=== PATIENT | male | born 1950 | race Caucasian/White ===

== ENCOUNTER 2017-08-17 09:37 | Day surgery (SDC) | payer OTHER ==
[~2017-08-17 09:37] MED LIST: Lactated Ringers 1,000 ML IV SCH; Sodium Chloride 0.9% 10 ML Syringe FLUSH PRN
[2017-08-17] MEDS ORDERED: Midazolam 1 MG/ML 2 ML SDV ONE ×2 (10:37→10:46)
[2017-08-17] MEDS ORDERED: Propofol 200 MG/20 ML SDV ONE ×2 (10:37→10:46)
--- NOTE | 2017-08-17 10:38 | PCM.PN ---
- General Info Date of Service: 08/17/17 - Review of Systems Systems Review Comment:: 66-year-old male with history of colon polyps and diverticulosis here for colonoscopy. He is medically stable to proceed today. His recent history and physical is reviewed and there is no significant changes since then. I have discussed the proposed colonoscopy with the patient. He understands indications options and risks and agrees to proceed. - Patient Data Vitals - Most Recent: Last Vital Signs Temp 98.7 F 08/17/17 10:11 Pulse 68 08/17/17 10:11 Resp 20 08/17/17 10:11 BP 166/100 H 08/17/17 10:11 Pulse Ox 94 L 08/17/17 10:11 Weight - Most Recent: 113.398 kg Med Orders - Current: Current Medications Lactated Ringer's (Ringers, Lactated) 1,000 mls @ 125 mls/hr IV ASDIRECTED RON Last Admin: 08/17/17 10:33 Dose: 125 mls/hr Sodium Chloride (Saline Flush) 10 ml FLUSH ASDIRECTED PRN PRN Reason: Keep Vein Open - Problem List Review Problem List Initiated/Reviewed/Updated: Yes - Assessment Assessment:: History of colon polyps - Plan Plan:: Colonoscopy
--- NOTE | 2017-08-17 11:31 | PCM.OPNOTE ---
- General Post-Op/Procedure Note Date of Surgery/Procedure: 08/17/17 Operative Procedure(s): Colonoscopy with polypectomy Findings: Extensive sigmoid and descending colon diverticulosis Multiple small colon polyps Pre Op Diagnosis: History of colon polyps Post-Op Diagnosis: Colon polyps. Diverticulosis Primary Surgeon: Silvano Corey Pathology: Colon polyps Output, Urine Amount: 0 EBL in mLs: 0 Complications: None Condition: Good Free Text/Narrative:: Intake & Output 08/16/17 08/17/17 08/17/17 22:59 06:59 14:59 Intake Total 900 Balance 900
[2017-08-17] MEDS ORDERED: Ondansetron 4 MG/2 ML SDV IVPUSH ONE (12:27)
--- NOTE | 2017-08-17 12:51 | OR ---
Date of Procedure: 08/17/2017 PREOPERATIVE DIAGNOSIS: History of colon polyps. POSTOPERATIVE DIAGNOSES: Colon polyps, diverticulosis. OPERATION PERFORMED: Colonoscopy with polypectomy. INDICATIONS FOR SURGERY: This 66-year-old male is here for surveillance colonoscopy. He has a history of colon polyps. FINDINGS: Multiple colon polyps were noted on today's exam. There was a 5 mm polyp in the distal transverse colon; a 6 mm polyp in the sigmoid colon, 20 cm from the anal verge; a 5 mm polyp in the sigmoid colon, 15 cm from the anal verge; a 5 mm polyp in the rectum, 10 cm from the anal verge; all of these polyps were sessile in configuration. The patient also has extensive diverticulosis involving the sigmoid and descending colon, although there was no acute inflammation noted. DESCRIPTION OF PROCEDURE: The patient was taken to the operating room. He was given intravenous sedation and with him in the left lateral decubitus position, digital rectal exam was performed showing no rectal masses. The Olympus colonoscope was inserted into the rectum. Retroflexed examination of the rectal canal was performed. The scope was then carefully advanced under direct visualization through the entire length of the colon until the cecum was reached. Visualization of the cecum was assisted by using hand pressure and the ileocecal valve and appendiceal orifice were identified, confirming cecal acquisition. After examining this area, the scope was slowly withdrawn, sequentially re-examining the colonic segments. During insertion and withdrawal of the scope, the above-described polyps were identified and each of these 4 polyps in turn were removed with cautery snare as they were encountered. They were all retrieved and will be submitted for pathology. There was no sign of any complication at the polypectomy sites. After the entire colon and rectum had been fully examined, the scope was removed and the patient was taken from the operating room in satisfactory condition. ESTIMATED BLOOD LOSS: Zero. COMPLICATIONS: None. PROGNOSIS: Good. FANTASMA Corey MD /[id number]
[2017-08-17 17:34] VITALS: BP 137/78
== END 2017-08-17 14:24 | disposition home or self-care (01) ==
LOC: LL.SDS 09:37
PROVIDERS: ATTEND Surgery
DX: Z12.11 Encounter for screening for malignant neoplasm of colon (principal); D12.3 Benign neoplasm of transverse colon; K63.5 Polyp of colon; K62.1 Rectal polyp; K57.30 Diverticulosis of large intestine without perforation or abscess without bleeding; Z86.010 Personal history of colon polyps; E11.9 Type 2 diabetes mellitus without complications; J44.9 Chronic obstructive pulmonary disease, unspecified; E29.1 Testicular hypofunction; E03.9 Hypothyroidism, unspecified; Z79.899 Other long term (current) drug therapy; Z87.891 Personal history of nicotine dependence; Z98.890 Other specified postprocedural states
CPT/HCPCS: 00812; 45385; J2250; J2405; J2704; J7050; J7120

== ENCOUNTER 2020-03-16 17:59 | Emergency (ER) | payer MEDICARE, OTHER ==
[2020-03-16] MEDS ORDERED: Bacitracin/Neomycin/Polymyxin B Oint 0.9 GM U/D Packet TOP ONE (18:11)
--- NOTE | 2020-03-16 18:11 | EDM.PDOC ---
ED HPI GENERAL MEDICAL PROBLEM - General Chief Complaint: Laceration Stated Complaint: laceration Time Seen by Provider: 03/16/20 18:00 Source of Information: Reports: Patient, Old Records ([facility] chart/EMR) History Limitations: Reports: No Limitations - History of Present Illness INITIAL COMMENTS - FREE TEXT/NARRATIVE: The patient was brought to the emergency room via private automobile by his for evaluation of a laceration, which occurred at home when he slipped on the ice and accidentally cut his left leg on his car door. No history of foreign b tiff, paresthesias, neck/back pain, fall, head injury, neurological deficits, or other complaints or injuries. The patient denies any chest pain/pressure, heart flutter, dizziness, orthostasis, orthopnea, diaphoresis, paresthesias, recent decreased exercise tolerance, or any other anginal-type symptoms. No recent history of abdominal pain, heartburn, nausea, diarrhea, melena, gross hematochezia, or any food intolerance, including fatty foods, etc.. The patient also denies any recent fever, cough, wheezing, dyspnea, etc.. The patient did rinse the laceration site out with tap water with no other medications or treatment prior to arrival. Onset: Today, Sudden Onset Date: 03/16/20 Onset Time: 17:30 Duration: Constant Location: Reports: Lower Extremity, Left. 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 (As above) Left Lower Leg Pain Score (Numeric/FACES): 5 - Related Data Allergies Allergy/AdvReac Type Severity Reaction Status Date / Time No Known Allergies Allergy Verified 03/16/20 18:03 Home Meds: Home Meds Budesonide/Formoterol [Symbicort 160-4.5 MCG] 1 puff INH BID 09/30/14 [History] Montelukast Sodium 10 mg PO QAM 02/18/14 [History] Ascorbate Calcium [Vitamin C] 500 mg PO DAILY 08/17/17 [History] Escitalopram [Lexapro] 10 mg PO QAM 08/17/17 [History] Ibuprofen 400 mg PO Q6HR PRN 08/17/17 [History] Loratadine 10 mg PO QAM 08/17/17 [History] Tiotropium [Spiriva Handihaler] 1 puff INH QAM 08/17/17 [History] Levothyroxine 200 mcg PO QAM 03/16/20 [History] Past Medical History HEENT History: Reports: Allergic Rhinitis, Impaired Vision, Sinusitis, Other (See Below) Other HEENT History: Patient wears glasses. Seasonal and enviromental allergies. Cardiovascular History: Reports: Aneurysm, Cardiomyopathy, High Cholesterol, Hypertension, Other (See Below) Other Cardiovascular History: Cardiomegaly. AAA. Complete right bundle branch block. Dyslipidemia. Hypertension. Mild left atrial enlargement and grade 1 diastolic dysfunction by echocardiogram. Respiratory History: Reports: Bronchitis, Recurrent, COPD, Pulmonary Fibrosis, Sleep Apnea, Other (See Below) Other Respiratory History: Moderate obstructive sleep apnea. Gastrointestinal History: Reports: Colon Polyp, Other (See Below) Other Gastrointestinal History: LFTs elevation possibly secondary to fatty sharron er. History of recurrent colonic polyps including tubular adenoma at 30 cm and a hyperplastic clonic polyp at the rectum and 20 cm on 02/20/2014. Hyperplastic colonic polyp at 15 cm with tubular adenomas at 20 cm in the transverse colon on 08/17/2017. Moderate diverticulosis in the descending and sigmoid colon. Small supraumbilical hernia. Benign hepatic cysts. 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 Musculoskeletal History: Reports: Arthritis, Back Pain, Chronic, Fracture, Neck Pain, Chronic, Osteoarthritis, Other (See Below) Other Musculoskeletal History: Left quadriceps tear with secondary superior patellar dislocation on 11/06/2004. Right thumb distal phalangeal fracture on 05/18/1999. Neurological History: Reports: None Psychiatric History: Reports: Anxiety, Depression Endocrine/Metabolic History: Reports: Hypothyroidism, Obesity/BMI 30+ Hematologic History: Reports: None Immunologic History: Reports: None Oncologic (Cancer) History: Reports: None Dermatologic History: Reports: None - Past Surgical History Cardiovascular Surgical History: Reports: AAA Repair GI Surgical History: Reports: Colonoscopy, Polypectomy, Other (See Below) Other GI Surgeries/Procedures: Colonoscopies on 08/17/2017 and 02/20/2014 with multiple polypectomies as above. Musculoskeletal Surgical History: Reports: Arthroscopic Knee, Other (See Below) Other Musculoskeletal Surgeries/Procedures:: Bilateral Knee surgery to repair tendons - Past Imaging History Past Imaging History: Reports: Cardiac Echo (03/07/2014 with ejection fraction of 60-65% and findings as above.), CAT Scan (CT of the chest on 03/07/2014. CT of the abdomen and pelvis on 07/24/2017 and 02/06/2014.), MRI (Right shoulder MRI on 07/24/2017. MRI of the C-spine on 08/12/2008.), PFT, Sleep Study (Last sleep study on 10/28/2014.), Stress Testing (Positive Cardiolite stress test on 11/07/2013 for anterior wall ischemia with ejection fraction of 64% however negative Cardiolite scan.), Ultrasound (Gallbladder ultrasound on 01/24/2014.) Social & Family History - Tobacco Use Tobacco Use Status *Q: Former Tobacco User Tobacco Use Within Last Twelve Months: Cigarettes Years of Tobacco use: 35 Packs/Tins Daily: 1 Packs/Tins Daily Comment: Smoked between ages 22 and 57. 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 ED EXAM, SKIN/RASH Exam: See Below Exam Limited By: No Limitations General Appearance: Alert, WD/WN, No Apparent Distress Head: Atraumatic, Normocephalic Neck: Normal Inspection, Supple, Non-Tender, Full Range of Motion. No: Lymphadenopathy (L), Lymphadenopathy (R), Thyromegaly Respiratory/Chest: No Respiratory Distress, Lungs Clear, Normal Breath Sounds, No Accessory Muscle Use, Chest Non-Tender. No: Pleural Rub, Retractions Cardiovascular: Normal Peripheral Pulses, Regular Rate, Rhythm, No Edema, No Gallop, No JVD, No Murmur, No Rub. No: Gallop/S3, Gallop/S4, Friction Rub Peripheral Pulses: 2+: Radial (L), Radial (R), Dorsalis Pedis (L), Dorsalis Pedis (R) GI/Abdominal: Normal Bowel Sounds, Soft, Non-Tender, No Organomegaly, No Distention, No Abnormal Bruit, No Mass, Pelvis Stable, Other (Obese). No: Guarding (Male) Exam: Deferred Rectal (Males) Exam: Deferred Back Exam: Normal Inspection, Full Range of Motion. No: CVA Tenderness (L), CVA Tenderness (R), Muscle Spasm Extremities: Normal Range of Motion, No Pedal Edema, Normal Capillary Refill, Leg Pain (As above at laceration site), Other (5 cm in length irregular laceration over the medial mid left tibial region with no foreign body). No: Non-Tender (Mild palpation pain over laceration site), Leana's Sign Psychiatric: Normal Affect, Normal Mood Skin: Warm, No Rash, Wound/Incision (Laceration site as above). No: Diaphoretic Location, Skin: Lower Extremity, Left Characteristics: Other (As above) Associated features: Tenderness (As above) Lymphatic: No Adenopathy ED SKIN PROCEDURES - Laceration/Wound Repair Left Lower Medial Distal Leg Appearance: Subcutaneous, Clean Distal NVT: Neuro & Vascular Intact, No Tendon Injury Anesthetic Type: Local Local Anesthesia - Lidocaine (Xylocaine): 1% Plain Local Anesthetic Volume: Other (10 cc) Skin Prep: Providone-Iodine (Betadine) Saline Irrigation (cc's): 0 Exploration/Debridement/Repair: Wound Explored, In a Bloodless Field, Explored to Base, Minimal Debridement, No Foreign Material Found, Multiple Flaps Aligned Closed with: Sutures Lac/Wound length In cm: 5.0 Suture Size: 4-0 # of Sutures: 9 Suture Type: Nylon, Interrupted, Simple Drain Placement: No Sterile Dressing Applied: Nurse Tetanus Status Addressed: Yes Complications: No Course - Vital Signs Last Recorded V/S: Last Vital Signs Temp 36.2 C 03/16/20 18:17 Pulse 78 03/16/20 18:17 Resp 18 03/16/20 18:17 BP 135/78 03/16/20 18:17 Pulse Ox 96 03/16/20 18:17 Vital Signs - 24 hr 03/16/20 18:17 Temperature [ 36.2 C Temporal] Pulse, 78 Peripheral [ Left Pulse Oximetry] Respiratory 18 Rate Blood Pressure 135/78 [Left Upper Arm ] O2 Sat by Pulse 96 Oximetry - Orders/Labs/Meds Orders: Active Orders 24 hr Category Date Time Status Obtain Past Medical Record [OM.PC] Routine Oth 03/16/20 18:11 Active Labs: None Meds: Medications Discontinued Medications Generic Name Dose Route Start Last Admin Trade Name Coral PRN Reason Stop Dose Admin Lidocaine HCl 5 ml 03/16/20 18:11 03/16/20 18:22 Xylocaine-Mpf 1% INJECT 03/16/20 18:12 5 ml ONETIME ONE Administration Lidocaine HCl 5 ml 03/16/20 18:11 03/16/20 18:25 Xylocaine-Mpf 1% INJECT 03/16/20 18:12 5 ml ONETIME ONE Administration Neomycin/Polymyxin/Bacitracin 1 each 03/16/20 18:11 03/16/20 18:26 Triple Antibiotic Oint TOP 03/16/20 18:12 1 each ONETIME ONE Administration - Radiology Interpretation Free Text/Narrative:: None Departure - Departure Time of Disposition: 18:50 Disposition: Home, Self-Care 01 Condition: Good Clinical Impression: Laceration, COPD (chronic obstructive pulmonary disease), Hypertension Sleep apnea Qualifiers: Sleep apnea type: unspecified type Qualified Code(s): G47.30 - Sleep apnea, unspecified Osteoarthritis Qualifiers: Osteoarthritis location: multiple joints Osteoarthritis type: primary Qualified Code(s): M89.49 - Other hypertrophic osteoarthropathy, multiple sites - Discharge Information *PRESCRIPTION DRUG MONITORING PROGRAM REVIEWED*: Not Applicable *COPY OF PRESCRIPTION DRUG MONITORING REPORT IN PATIENT OMAR: Not Applicable Instructions: Laceration Care, Adult, [id number], Sutures, Nacho, or Adhesive Wound Closure, [id number] Referrals: Trish Aguilera NP [Primary Care Provider] - Forms: ED Department Discharge Additional Instructions: 1. Follow up with your regular provider in 10-14 days for suture removal as directed. Bring these discharge instructions with you to that visit. 2. Tylenol 650 mg by mouth every 4 hours and/or OTC ibuprofen 2-3 tabs by mouth every 6 hours with food as directed./needed. You may stagger these medications for 48-72 hours only, which essentially means that you are receiving a pain medication about every 2 hours. 3. Antibacterial soap wash/soak with subsequent antibacterial dressing such as Neosporin, etc. as directed 2 times per day until the wound or laceration site completely heals. Keep the area clean and dry with activity restrictions as discussed. Never use hydrogen peroxide for wound care. 4. Immediately after this visit verify that your cellular telephone's voicemail has been activated and is empty. Also verify that your home telephone's answering machine is operating properly and has space to receive messages. Note that it is sometimes necessary for us to be able to contact you at a later date to discuss your medical care. 5. Please remember that we are ALWAYS here for you and want to answer any questions you may have. Feel free to call the hospital any time and we call you back ADRIENNE. Sepsis Event Note (ED) - Focused Exam Vital Signs: Vital Signs Temp Pulse Resp BP Pulse Ox 03/16/20 18:17 36.2 C 78 18 135/78 96 - Problem List & Annotations (1) Laceration SNOMED Code(s): 267857165 Code(s): NXR0258 - Status: Acute Priority: High Onset Date: 03/16/20 Annotation/Comment:: Excellent results with laceration repair as above. The ER nurse did confirm the patient's last tetanus booster on 05/22/2011 through [facility] with the patient not wishing to have a TD AP at this time. This is reasonable since this was not a dirty injury. Activity restrictions, wound care, etc. were discussed. (2) Osteoarthritis SNOMED Code(s): 540605020 Code(s): M19.90 - UNSPECIFIED OSTEOARTHRITIS, UNSPECIFIED SITE Status: Chronic Priority: Medium Annotation/Comment:: Otherwise stable by history with no evidence of other injuries. Qualifiers: Osteoarthritis location: knee Osteoarthritis type: primary (3) COPD (chronic obstructive pulmonary disease) SNOMED Code(s): 26687313 Code(s): J44.9 - CHRONIC OBSTRUCTIVE PULMONARY DISEASE, UNSPECIFIED Status: Chronic Priority: Medium Annotation/Comment:: No recent fever or bronchitic type symptoms. Note history of sleep apnea. Qualifiers: COPD type: emphysema Emphysema type: panlobular Qualified Code(s): J43.1 - Panlobular emphysema (4) Hypertension SNOMED Code(s): 82638313 Code(s): I10 - ESSENTIAL (PRIMARY) HYPERTENSION Status: Chronic Priority: Medium Annotation/Comment:: Stable in the emergency room. Qualifiers: Hypertension type: essential hypertension Qualified Code(s): I10 - Essential (primary) hypertension - Problem List Review Problem List Initiated/Reviewed/Updated: Yes - My Orders Last 24 Hours: My Active Orders 03/16/20 18:11 Obtain Past Medical Record [OM.PC] Routine - Assessment/Plan Last 24 Hours: My Active Orders 03/16/20 18:11 Obtain Past Medical Record [OM.PC] Routine Assessment:: As above Plan: As above. Extensive precautions were given to the patient, who is in agreement with the treatment plan. See Patient Instructions for further treatment and plan.
[2020-03-16 18:18] VITALS: BP 135/78; PULSE 78
== END 2020-03-16 18:50 | disposition home or self-care (01) ==
LOC: LL.ED 17:59
DX: S81.812A Laceration without foreign body, left lower leg, initial encounter (principal); I10 Essential (primary) hypertension; J44.9 Chronic obstructive pulmonary disease, unspecified; G47.30 Sleep apnea, unspecified; M89.49 Other hypertrophic osteoarthropathy, multiple sites; E66.9 Obesity, unspecified; F41.9 Anxiety disorder, unspecified; F32.9 Major depressive disorder, single episode, unspecified; Z68.33 Body mass index [BMI] 33.0-33.9, adult; Z87.891 Personal history of nicotine dependence; W23.0XXA Caught, crushed, jammed, or pinched between moving objects, initial encounter; Y92.009 Unspecified place in unspecified non-institutional (private) residence as the place of occurrence of the external cause
CPT/HCPCS: 12002; 99282-25; J2001

== ENCOUNTER 2020-04-22 21:10 | Emergency (ER) | payer MEDICARE, OTHER ==
[2020-04-22 21:15] VITALS: BP 105/55; PULSE 92
--- NOTE | 2020-04-22 21:47 | EDM.PDOC ---
ED HPI GENERAL MEDICAL PROBLEM - General Chief Complaint: Lower Extremity Injury/Pain Stated Complaint: Left knee pain Time Seen by Provider: 04/22/20 21:25 Source of Information: Reports: Patient History Limitations: Reports: No Limitations - History of Present Illness INITIAL COMMENTS - FREE TEXT/NARRATIVE: Pain in left knee No recent trauma Has been going on for a week More pain today especially with weight bearing No redness Mild swelling Onset: Gradual Duration: Week(s):, Getting Worse Location: Reports: Lower Extremity, Left Quality: Reports: Stabbing, Throbbing Severity: Moderate Improves with: Reports: Immobilization Worsens with: Reports: Movement 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 Left Knee Pain Score (Numeric/FACES): 8 - Related Data Allergies Allergy/AdvReac Type Severity Reaction Status Date / Time No Known Allergies Allergy Verified 04/22/20 21:24 Home Meds: Home Meds Budesonide/Formoterol [Symbicort 160-4.5 MCG] 1 puff INH BID 02/18/14 [History] Montelukast Sodium 10 mg PO QAM 02/18/14 [History] Ascorbate Calcium [Vitamin C] 500 mg PO DAILY 08/17/17 [History] Escitalopram [Lexapro] 10 mg PO QAM 08/17/17 [History] Ibuprofen 400 mg PO Q6HR PRN 08/17/17 [History] Loratadine 10 mg PO QAM 08/17/17 [History] Tiotropium [Spiriva Handihaler] 1 puff INH QAM 08/17/17 [History] Levothyroxine 200 mcg PO QAM 03/16/20 [History] Past Medical History HEENT History: Reports: Allergic Rhinitis, Impaired Vision, Sinusitis, Other (See Below) Other HEENT History: Patient wears glasses. Seasonal and enviromental allergies. Cardiovascular History: Reports: Aneurysm, Cardiomyopathy, High Cholesterol, Hypertension, Other (See Below) Other Cardiovascular History: Cardiomegaly. AAA. Complete right bundle branch block. Dyslipidemia. Hypertension. Mild left atrial enlargement and grade 1 diastolic dysfunction by echocardiogram. Respiratory History: Reports: Bronchitis, Recurrent, COPD, Pulmonary Fibrosis, Sleep Apnea, Other (See Below) Other Respiratory History: Moderate obstructive sleep apnea. Gastrointestinal History: Reports: Colon Polyp, Other (See Below) Other Gastrointestinal History: LFTs elevation possibly secondary to fatty liver. History of recurrent colonic polyps including tubular adenoma at 30 cm and a hyperplastic clonic polyp at the rectum and 20 cm on 02/20/2014. Hyperplastic colonic polyp at 15 cm with tubular adenomas at 20 cm in the transverse colon on 08/17/2017. Moderate diverticulosis in the descending and sigmoid colon. Small supraumbilical hernia. Benign hepatic cysts. 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 Musculoskeletal History: Reports: Arthritis, Back Pain, Chronic, Fracture, Neck Pain, Chronic, Osteoarthritis, Other (See Below) Other Musculoskeletal History: Left quadriceps tear with secondary superior patellar dislocation on 11/06/2004. Right thumb distal phalangeal fracture on 05/18/1999. Neurological History: Reports: None Psychiatric History: Reports: Anxiety, Depression Endocrine/Metabolic History: Reports: Hypothyroidism, Obesity/BMI 30+ Hematologic History: Reports: None Immunologic History: Reports: None Oncologic (Cancer) History: Reports: None Dermatologic History: Reports: None - Past Surgical History Cardiovascular Surgical History: Reports: AAA Repair GI Surgical History: Reports: Colonoscopy, Polypectomy, Other (See Below) Other GI Surgeries/Procedures: Colonoscopies on 08/17/2017 and 02/20/2014 with multiple polypectomies as above. Musculoskeletal Surgical History: Reports: Arthroscopic Knee, Other (See Below) Other Musculoskeletal Surgeries/Procedures:: Bilateral Knee surgery to repair tendons - Past Imaging History Past Imaging History: Reports: Cardiac Echo (03/07/2014 with ejection fraction of 60-65% and findings as above.), CAT Scan (CT of the chest on 03/07/2014. CT of the abdomen and pelvis on 07/24/2017 and 02/06/2014.), MRI (Right shoulder MRI on 07/24/2017. 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67.) Review of Systems - Review of Systems Review Of Systems: See Below Musculoskeletal: Reports: Joint Pain, Joint Swelling ED EXAM, GENERAL - Physical Exam Exam: See Below Exam Limited By: No Limitations General Appearance: Alert, WD/WN, Mild Distress Extremities: Other (Left knee with mild swelling No redness No ecchymosis No effesion Mildly tender with palpation and ROM) Course - Vital Signs Last Recorded V/S: Last Vital Signs Temp 97.0 F 04/22/20 21:13 Pulse 92 04/22/20 21:13 Resp 12 04/22/20 21:13 BP 105/55 L 04/22/20 21:13 Pulse Ox 100 04/22/20 21:13 - Orders/Labs/Meds Orders: Active Orders 24 hr Category Date Time Status Knee 3V Lt [CR] Stat Exams 04/22/20 21:21 Taken - Re-Assessments/Exams Free Text/Narrative Re-Assessment/Exam: 04/22/20 21:45 Xray: No fracture Degenerative changes noted Departure - Departure Time of Disposition: 21:45 Disposition: Home, Self-Care 01 Clinical Impression: Knee pain, left Qualifiers: Chronicity: acute Qualified Code(s): M25.562 - Pain in left knee - Discharge Information *PRESCRIPTION DRUG MONITORING PROGRAM REVIEWED*: Not Applicable *COPY OF PRESCRIPTION DRUG MONITORING REPORT IN PATIENT OMAR: Not Applicable Instructions: Acute Knee Pain, Adult Referrals: Jose Cruz Orantes PA-C [Primary Care Provider] - Additional Instructions: Follow up in clinic Ice as needed Rx Tylenol #3 One pill every 6 hours for pain Sepsis Event Note (ED) - Evaluation Sepsis Screening Result: No Definite Risk - Focused Exam Vital Signs: Vital Signs Temp Pulse Resp BP Pulse Ox 04/22/20 21:13 97.0 F 92 12 105/55 L 100 - My Orders Last 24 Hours: My Active Orders 04/22/20 21:21 Knee 3V Lt [CR] Stat - Assessment/Plan Last 24 Hours: My Active Orders 04/22/20 21:21 Knee 3V Lt [CR] Stat
== END 2020-04-22 22:00 | disposition home or self-care (01) ==
LOC: LL.ED 21:10
DX: M25.562 Pain in left knee (principal); J44.9 Chronic obstructive pulmonary disease, unspecified; I10 Essential (primary) hypertension; Z79.899 Other long term (current) drug therapy; F41.9 Anxiety disorder, unspecified; F32.9 Major depressive disorder, single episode, unspecified; E03.9 Hypothyroidism, unspecified; E66.9 Obesity, unspecified; Z68.33 Body mass index [BMI] 33.0-33.9, adult
CPT/HCPCS: 73562-LT; 99283; 99283-25

== ENCOUNTER 2021-03-08 07:57 | Day surgery (SDC) | payer MEDICARE, OTHER ==
[~2021-03-08 07:57] MED LIST changes: -Lactated Ringers 1,000 ML IV SCH; +Midazolam 1 MG/ML 2 ML SDV ONE; +Propofol 200 MG/20 ML SDV ONE; -Sodium Chloride 0.9% 10 ML Syringe FLUSH PRN
[2021-03-08] MEDS ORDERED: Lactated Ringers 1,000 ML IV SCH (08:00)
[2021-03-08] MEDS ORDERED: Sodium Chloride 0.9% 10 ML Syringe FLUSH PRN (08:00)
--- NOTE | 2021-03-08 08:58 | PCM.PN ---
- General Info Date of Service: 03/08/21 - Review of Systems Systems Review Comment:: 70-year-old male with history of colon polyps here for colonoscopy. He is medically stable to proceed today. His recent history and physical is reviewed and no significant changes are noted. Patient also has history of symptomatic hemorrhoids and agrees to hemorrhoid banding if findings indicate. I have discussed the proposed colonoscopy with the patient. He agrees to proceed accepting risks. - Patient Data Vitals - Most Recent: Last Vital Signs Temp 97.5 F 03/08/21 08:08 Pulse 66 03/08/21 08:08 Resp 18 03/08/21 08:08 BP 134/923 H 03/08/21 08:08 Pulse Ox 93 L 03/08/21 08:08 Weight - Most Recent: 108.862 kg Med Orders - Current: Current Medications Lactated Ringer's (Ringers, Lactated) 1,000 mls @ 125 mls/hr IV ASDIRECTED RON Last Admin: 03/08/21 08:38 Dose: 125 mls/hr Documented by: Sodium Chloride (Sodium Chloride 0.9% 10 Ml Syringe) 10 ml FLUSH ASDIRECTED PRN PRN Reason: Keep Vein Open Discontinued Medications Midazolam HCl (Midazolam 1 Mg/Ml 2 Ml Sdv) Confirm Administered Dose 2 mg .ROUTE .STK-MED ONE Stop: 03/08/21 07:39 Propofol (Propofol 200 Mg/20 Ml Sdv) Confirm Administered Dose 400 mg .ROUTE .STK-MED ONE Stop: 03/08/21 07:40 Sepsis Event Note - Focused Exam Vital Signs: Vital Signs Temp Pulse Resp BP Pulse Ox 03/08/21 08:08 97.5 F 66 18 134/923 H 93 L - Problem List Review Problem List Initiated/Reviewed/Updated: Yes - My Orders Last 24 Hours: My Active Orders 03/08/21 08:00 Patient Status [ADT] Routine Peripheral IV Care [RC] . DIRECTED Verify Patient Consent Obtain [RC] ASDIRECTED Lactated Ringers [Ringers, Lactated] 1,000 ml IV ASDIRECTED Sodium Chloride 0.9% [Saline Flush] 10 ml FLUSH ASDIRECTED PRN Peripheral IV Insertion Adult [OM.PC] Routine - Assessment Assessment:: History of colon polyps Hemorrhoids - Plan Plan:: Colonoscopy with possible hemorrhoid banding
[2021-03-08] MEDS ORDERED: Midazolam 1 MG/ML 2 ML SDV ONE (09:00)
[2021-03-08] MEDS ORDERED: Glycopyrrolate 0.2 MG/ML SDV ONE (09:00)
[2021-03-08] MEDS ORDERED: Propofol 200 MG/20 ML SDV ONE (09:00)
[2021-03-08] MEDS ORDERED: Metoprolol Tartrate 5 MG/5 ML SDV ONE (09:00)
[2021-03-08] MEDS ORDERED: Albuterol 6.7 GM Inhaler INH ONE (09:00)
[2021-03-08] MEDS ORDERED: Lactated Ringers 1,000 ML IV ONE (09:50)
--- NOTE | 2021-03-08 09:50 | PCM.OPNOTE ---
- General Post-Op/Procedure Note Date of Surgery/Procedure: 03/08/21 Operative Procedure(s): Colonoscopy with Polypectomy and Hemorrhoid banding Findings: Multiple small colon polyps Extensive Sigmoid Diverticulosis Large internal/external hemorrhoids Pre Op Diagnosis: History of colon polyps. Symptomatic Hemorrhoids Post-Op Diagnosis: Colon Polyps. Diverticulosis. Hemorrhoids Anesthesia Technique: MAC Primary Surgeon: Silvano Corey Pathology: Colon Polyps EBL in mLs: 0 Complications: None Condition: Good
[2021-03-08 10:27] LABS: ANION GAP 10.1 meq/L (7-15)
[2021-03-08 13:15] VITALS: BP 139/79; PULSE 66
--- NOTE | 2021-03-09 07:20 | OR ---
Date of Procedure: 03/08/2021 PREOPERATIVE DIAGNOSES: History of colon polyps and symptomatic hemorrhoids. POSTOPERATIVE DIAGNOSES: 1. Colon polyps. 2. Diverticulosis. 3. Hemorrhoids. OPERATIONS PERFORMED: Colonoscopy with polypectomy and hemorrhoid banding. INDICATIONS FOR SURGERY: This 70-year-old male has a known history of colon polyps and comes for surveillance colonoscopy. He has also been having symptoms from enlarged hemorrhoids and desires hemorrhoid banding. FINDINGS: Small polyps were noted in 3 areas. All of these polyps are approximately 5 mm to 6 mm in size. Two polyps were located at the hepatic flexure, 1 at the area in the transverse colon, and another at the splenic flexure. The patient also has extensive diverticulosis of the sigmoid region with multiple large diverticula, although these do not appear to be acutely inflamed or otherwise complicated. In addition, the patient has a large internal-external hemorrhoidal complexes. DESCRIPTION OF PROCEDURE: The patient was taken to the operating room. He was given intravenous sedation and with him in the left lateral decubitus position, digital rectal exam was performed showing no rectal masses, although hemorrhoids were identified. The Olympus colonoscope was inserted into the rectum. Retroflexed examination of the rectal canal was performed. The scope was then carefully advanced under direct visualization through the entire length of the colon until the cecum was reached. Cecal acquisition was confirmed by noting the normal internal cecal anatomy including the appendiceal orifice and the ileocecal valve. After examining the cecum, the scope was slowly withdrawn sequentially re-examining the colonic segments. During insertion and withdrawal of the scope, the above-described polyps were identified. These were each removed with cautery snare and retrieved into a polyp trap. They were submitted as specimens. The examination was then completed, and the anoscope was inserted into the rectum. Largest hemorrhoidal complexes were noted at the 11 and 5 o'clock positions, and bands were placed on the internal hemorrhoids at these locations. The anoscope was removed, and the patient was then taken from the operating room in satisfactory condition. ESTIMATED BLOOD LOSS: Zero. COMPLICATIONS: None. PROGNOSIS: Good. FANTASMA Corey MD /[id number]
== END 2021-03-08 11:56 | disposition home or self-care (01) ==
LOC: LL.SDS 07:57
PROVIDERS: ATTEND Surgery
DX: D12.3 Benign neoplasm of transverse colon (principal); K57.30 Diverticulosis of large intestine without perforation or abscess without bleeding; K64.8 Other hemorrhoids; K64.4 Residual hemorrhoidal skin tags; J44.9 Chronic obstructive pulmonary disease, unspecified; N18.30 Chronic kidney disease, stage 3 unspecified; I12.9 Hypertensive chronic kidney disease with stage 1 through stage 4 chronic kidney disease, or unspecified chronic kidney disease; E66.9 Obesity, unspecified; G62.9 Polyneuropathy, unspecified; E03.9 Hypothyroidism, unspecified; D53.9 Nutritional anemia, unspecified; I95.89 Other hypotension; Z87.891 Personal history of nicotine dependence; Z88.8 Allergy status to other drugs, medicaments and biological substances; Z79.899 Other long term (current) drug therapy; Z98.890 Other specified postprocedural states; Z68.32 Body mass index [BMI] 32.0-32.9, adult; Z79.890 Hormone replacement therapy
CPT/HCPCS: 36415; 45385; 46221; 71045; 80048; 85025; 86140; 93005; A9270; J2250; J2704; J3490; J7120

== ENCOUNTER 2021-05-14 09:10 | Emergency (ER) | payer MEDICARE, OTHER ==
[2021-05-14] MEDS ORDERED: Acetaminophen/HYDROcodone 325-10 MG Tab PO ONE (09:24)
[2021-05-14 09:47] VITALS: BP 147/89; PULSE 62
[2021-05-14] MEDS ORDERED: Bacitracin Oint 1 GM U/D Packet TOP ONE (09:55)
--- NOTE | 2021-05-14 10:05 | EDM.PDOC ---
ED HPI GENERAL MEDICAL PROBLEM - General Chief Complaint: Lower Extremity Injury/Pain Stated Complaint: Right great toe injury Time Seen by Provider: 05/14/21 09:15 Source of Information: Reports: Patient History Limitations: Reports: No Limitations - History of Present Illness INITIAL COMMENTS - FREE TEXT/NARRATIVE: Patient was moving an old tv and dropped it on his right great toe. Pain was immediate as was some bleeding. Able to limp, but painful to push off the toe. Not on a blood thinner Onset: Today - Related Data Allergies Allergy/AdvReac Type Severity Reaction Status Date / Time [id number] Reductase Allergy Sensitivity Verified 05/14/21 09:30 Inhibitor to Statins [[id number]-Hok Reductase Inhibitor] Home Meds: Home Meds Montelukast Sodium 10 mg PO QAM 02/18/14 [History] Ascorbate Calcium [Vitamin C] 500 mg PO DAILY 08/17/17 [History] Escitalopram [Lexapro] 10 mg PO QAM 08/17/17 [History] Levothyroxine 200 mcg PO QAM 03/16/20 [History] Diclofenac Sodium [Voltaren 1% Gel] 2 gram TOP BID PRN 03/07/21 [History] Fluticasone/Vilanterol [Breo Ellipta 200-25 MCG Inhalation Kit] 1 puff INH DAILY 03/07/21 [History] Gabapentin [Neurontin] 1 - 2 cap PO BEDTIME 03/07/21 [History] Ipratropium/Albuterol Sulfate [Iprat-Albut 0.5-3(2.5) mg/3 ml] 1 vial INH QID PRN 03/07/21 [History] Rosuvastatin [Crestor] 10 mg PO DAILY 03/07/21 [History] calcium polycarbophiL [Fibercon] 625 mg PO DAILY 03/07/21 [History] Hydrocodone/Acetaminophen [HYDROcodone-Acetaminophen 10-325 MG] 1 each PO Q6H PRN #30 tab 05/14/21 [Rx] cephALEXin [Keflex] 500 mg PO Q8H 10 Days #40 cap 05/14/21 [Rx] Past Medical History HEENT History: Reports: Allergic Rhinitis, Impaired Vision, Sinusitis, Other (See Below) Other HEENT History: Patient wears glasses. Seasonal and enviromental allergies. Cardiovascular History: Reports: Aneurysm, Cardiomyopathy, High Cholesterol, Hypertension, Other (See Below) Other Cardiovascular History: Cardiomegaly. AAA. Complete right bundle branch block. Dyslipidemia. Hypertension. Mild left atrial enlargement and grade 1 diastolic dysfunction by echocardiogram. Respiratory History: Reports: COPD Other Respiratory History: Moderate obstructive sleep apnea. Gastrointestinal History: Reports: Colon Polyp, Other (See Below) Other Gastrointestinal History: LFTs elevation possibly secondary to fatty liver. History of recurrent colonic polyps including tubular adenoma at 30 cm and a hyperplastic clonic polyp at the rectum and 20 cm on 02/20/2014. Hyperplastic colonic polyp at 15 cm with tubular adenomas at 20 cm in the transverse colon on 08/17/2017. Moderate diverticulosis in the descending and sigmoid colon. Small supraumbilical hernia. Benign hepatic cysts. 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 Musculoskeletal History: Reports: Arthritis, Back Pain, Chronic, Fracture, Neck Pain, Chronic, Osteoarthritis, Other (See Below) Other Musculoskeletal History: Left quadriceps tear with secondary superior patellar dislocation on 11/06/2004. Right thumb distal phalangeal fracture on 05/18/1999. Neurological History: Reports: None Psychiatric History: Reports: Anxiety, Depression Endocrine/Metabolic History: Reports: Hypothyroidism, Obesity/BMI 30+ Hematologic History: Reports: None Immunologic History: Reports: None Oncologic (Cancer) History: Reports: None Dermatologic History: Reports: None - Infectious Disease History Infectious Disease History: Reports: Chicken Pox - Past Surgical History Cardiovascular Surgical History: Reports: AAA Repair GI Surgical History: Reports: Colonoscopy, Polypectomy, Other (See Below) Musculoskeletal Surgical History: Reports: Arthroscopic Knee, Other (See Below) - Past Imaging History Past Imaging History: Reports: Cardiac Echo (03/07/2014 with ejection fraction of 60-65% and findings as above.), CAT Scan (CT of the chest on 03/07/2014. CT of the abdomen and pelvis on 07/24/2017 and 02/06/2014.), MRI (Right shoulder MRI on 07/24/2017. 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67.) Review of Systems - Review of Systems Review Of Systems: See Below Constitutional: Reports: No Symptoms Eyes: Reports: No Symptoms Ears: Reports: No Symptoms Nose: Reports: No Symptoms Mouth/Throat: Reports: No Symptoms Respiratory: Reports: No Symptoms Cardiovascular: Reports: No Symptoms GI/Abdominal: Reports: No Symptoms Genitourinary: Reports: No Symptoms Musculoskeletal: Reports: Foot Pain (rigth great toe) Skin: Reports: Wound (right great toe) Neurological: Reports: No Symptoms Psychiatric: Reports: No Symptoms ED EXAM, GENERAL - Physical Exam Exam: See Below Exam Limited By: No Limitations General Appearance: Alert, WD/WN, No Apparent Distress Eye Exam: Bilateral Eye: EOMI, PERRL Ears: Normal External Exam Throat/Mouth: Normal Voice, No Airway Compromise Head: Atraumatic Neck: Normal Inspection Respiratory/Chest: No Respiratory Distress, Normal Breath Sounds Cardiovascular: Regular Rate, Rhythm Extremities: Other (right great toe with swelling, pain distal to the pip. abrasion and 2mm laceration at the nailbed area but nailbed intact, draining blood from subungal hematoma. 2 mm laceration at tip of toe minimally bleeding. No angulation. sensation intact distally) Neurological: Alert Course - Vital Signs Last Recorded V/S: Last Vital Signs Temp 36.2 C 05/14/21 09:15 Pulse 62 05/14/21 09:15 Resp 16 05/14/21 09:15 BP 147/89 H 05/14/21 09:15 Pulse Ox 97 05/14/21 09:15 - Orders/Labs/Meds Orders: Active Orders 24 hr Category Date Time Status Toes Great Toe Rt T5 [CR] Stat Exams 05/14/21 09:24 Ordered Bacitracin [Bacitracin Oint 1 GM] Med 05/14/21 09:55 Once 1 dose TOP ONETIME ONE Medication Orders Bacitracin (Bacitracin Oint 1 Gm U/D Packet) 1 dose TOP ONETIME ONE Stop: 05/14/21 09:56 Meds: Medications Generic Name Dose Route Start Last Admin Trade Name Freq PRN Reason Stop Dose Admin Bacitracin 1 dose 05/14/21 09:55 Bacitracin Oint 1 Gm U/D Packet TOP 05/14/21 09:56 ONETIME ONE Discontinued Medications Generic Name Dose Route Start Last Admin Trade Name Coral PRN Reason Stop Dose Admin Hydrocodone Bitart/Acetaminophen 1 tab 05/14/21 09:24 05/14/21 09:29 Acetaminophen/Hydrocodone 325-10 Mg Tab PO 05/14/21 09:25 1 tab ONETIME ONE Administration - Radiology Interpretation Free Text/Narrative:: comminuted distal phalanyx fracture of the great toe, good overall alignment. preliminary read - Re-Assessments/Exams Free Text/Narrative Re-Assessment/Exam: given hydrocodone 10/325 po, tetanus is up to date 2019. x-ray with comminuted distal fracture. We do not have a post op shoe, but he has a cam walker at home. Advised on local cares, antibiotic ointment etc. ice, elevation, antibiotics and pain medication. offered orthopedic referral for pinning, patient would consider it. return for signs of infection, 05/14/21 10:14 Departure - Departure Time of Disposition: 09:57 Disposition: Home, Self-Care 01 Condition: Good Clinical Impression: Open toe fracture, Subungual hematoma of foot - Discharge Information Prescriptions: Hydrocodone/Acetaminophen [HYDROcodone-Acetaminophen 10-325 MG] 1 each PO Q6H PRN #30 tab PRN Reason: Pain (Moderate 4-6) cephALEXin [Keflex] 500 mg PO Q8H 10 Days #40 cap Instructions: Subungual Hematoma, [id number], Toe Fracture, [id number] Referrals: Erika Hall MD [Primary Care Provider] - Additional Instructions: You have a comminuted distal toe fracture that is considered an open fracture. It is in good overall alignment but you could seek surgical correction if desired for quicker stabilization. otherwise, the open areas on the toe are serving to help drain the bleeding from under the nail bed and are not closed for this purpose. You should change the dressing as needed when it is saturated. Clean with soap and water, apply antibiotic ointment and non stick dressing. Ice and elevate for swelling control. Watch for signs of infection. You may want to wear the cam walker that you have, purchase a post op shoe or use something with an open toe box and stiff bottom to keep you from flexion at the toe joint. Walk like a penguin to limit movement of the fracture for at least 2 weeks to help in healing. You are prescribed antibiotics as this is an open fracture to prevent bone infection. Do not soak the foot, use hot tub or swimming pools until 2 weeks. Take the antibiotics until gone and take a probiotic the entire time you are taking the antibiotic' You are given hydrocodone for the pain. Take 1/2-1 tablet every 6 hours as needed for pain. Also can use tylenol or motrin instead. Pain medication causes sedation ( do not drive or drink alcohol while using) and constipation, so take a stool softener to help Sepsis Event Note (ED) - Evaluation Sepsis Screening Result: No Definite Risk - Focused Exam Vital Signs: Vital Signs Temp Pulse Resp BP Pulse Ox 05/14/21 09:15 36.2 C 62 16 147/89 H 97 - My Orders Last 24 Hours: My Active Orders 05/14/21 09:24 Toes Great Toe Rt T5 [CR] Stat 05/14/21 09:55 Bacitracin [Bacitracin Oint 1 GM] 1 dose TOP ONETIME ONE - Assessment/Plan Last 24 Hours: My Active Orders 05/14/21 09:24 Toes Great Toe Rt T5 [CR] Stat 05/14/21 09:55 Bacitracin [Bacitracin Oint 1 GM] 1 dose TOP ONETIME ONE
== END 2021-05-14 10:25 | disposition home or self-care (01) ==
LOC: LL.ED 09:10
DX: S92.421B Displaced fracture of distal phalanx of right great toe, initial encounter for open fracture (principal); E78.00 Pure hypercholesterolemia, unspecified; I10 Essential (primary) hypertension; J44.9 Chronic obstructive pulmonary disease, unspecified; M19.90 Unspecified osteoarthritis, unspecified site; E03.9 Hypothyroidism, unspecified; E66.9 Obesity, unspecified; Z88.8 Allergy status to other drugs, medicaments and biological substances; Z79.899 Other long term (current) drug therapy; W20.8XXA Other cause of strike by thrown, projected or falling object, initial encounter
CPT/HCPCS: 73660; 99283; A9270

== ENCOUNTER 2024-03-07 08:39 | Day surgery (SDC) | payer MEDICARE, OTHER ==
[2024-03-07] MEDS ORDERED: Sodium Chloride 0.9% 10 ML Syringe FLUSH PRN (08:45)
[2024-03-07] MEDS: Lactated Ringers 1,000 ML IV SCH (09:20)
[2024-03-07] MEDS ORDERED: Propofol 200 MG/20 ML SDV ONE (10:29)
[2024-03-07 10:53] VITALS: BP 115/63; PULSE 57
== END 2024-03-07 11:10 | disposition home or self-care (01) ==
LOC: LL.SDS 08:39
PROVIDERS: ATTEND Surgery
DX: Z12.11 Encounter for screening for malignant neoplasm of colon (principal); D12.3 Benign neoplasm of transverse colon; D12.4 Benign neoplasm of descending colon; K57.30 Diverticulosis of large intestine without perforation or abscess without bleeding; K64.8 Other hemorrhoids; K63.5 Polyp of colon; Z86.0100 Personal history of colon polyps, unspecified; N18.30 Chronic kidney disease, stage 3 unspecified; F41.9 Anxiety disorder, unspecified; Z87.891 Personal history of nicotine dependence; Z79.899 Other long term (current) drug therapy
CPT/HCPCS: 00811; 99100; J2250; J2704; J7120

== ENCOUNTER 2024-05-18 10:37 | Emergency (ER) | payer MEDICARE, OTHER ==
[2024-05-18 11:19] LABS: INR 1.1 (0.9-1.1); PROTHROMBIN TIME 10.6 SEC (9.0-11.1)
[2024-05-18 11:31] LABS: HEMATOCRIT 35.1 % (39.0-49.0); HEMOGLOBIN 11.9 g/dL (13.1-16.8); MEAN CORPUSCULAR HEMOGLOBIN 35.6 pg (28.2-33.3); MEAN CORPUSCULAR HGB CONC 33.9 g/dL (31.7-36.0); MEAN CORPUSCULAR VOLUME 105.1 fL (84.0-98.0); RED BLOOD CELL COUNT 3.34 M/uL (4.33-5.41); RED CELL DISTRIBUTION WIDTH 12.9 % (11.2-14.1)
[2024-05-18 11:37] LABS: ALBUMIN 2.5 g/dL (3.4-5.0); BILIRUBIN TOTAL 1.7 mg/dL (0.2-1.0); CALCIUM 8.5 mg/dL (8.5-10.1); CARBON DIOXIDE,CO2 25.7 mmol/L (21.0-32.0); CREATININE 1.33 mg/dL (0.51-1.17); EST CRCL DRUG DOSING (CG) 55.91 mL/min; MAGNESIUM 1.8 mg/dL (1.8-2.4); PLATELET COUNT,PLT 36 K/uL (150-350); POTASSIUM,K 4.4 mmol/L (3.5-5.1); PROTEIN TOTAL,TP 5.8 g/dL (6.4-8.2); WHITE BLOOD CELL COUNT,WBC 1.5 K/uL (4.0-10.2)
[2024-05-18 11:38] LABS: ANION GAP 11.7 meq/L (7-15)
[2024-05-18 11:39] LABS: LYMPHOCYTES PERCENT MAN 76; MONOCYTES PERCENT MAN 5; SEG NEUTROPHILS PERCENT MAN 17
[2024-05-18 11:40] LABS: BASOPHILS PERCENT MAN 1; EOSINOPHILS PERCENT MAN 1
[2024-05-18 12:19] LABS: APPEARANCE,URINE CLEAR; BILIRUBIN,URINE NEGATIVE (NEGATIVE); COLOR,URINE YELLOW; GLUCOSE,URINE NEGATIVE (NEGATIVE); KETONES,URINE NEGATIVE (NEGATIVE); LEUKOCYTE ESTERASE,URINE NEGATIVE (NEGATIVE); NITRITE,URINE NEGATIVE (NEGATIVE); OCCULT BLOOD,URINE NEGATIVE (NEGATIVE); PROTEIN,URINE NEGATIVE (NEGATIVE)
[2024-05-18] MEDS: Sodium Chloride 0.9% 10 ML Syringe FLUSH PRN (13:40)
[2024-05-18] MEDS: Cefepime 2 GM Vial IVPUSH ONE (13:45)
[2024-05-18 15:51] VITALS: BP 153/85; PULSE 66
== END 2024-05-18 14:30 ==
LOC: LL.ED 10:37
DX: K57.32 Diverticulitis of large intestine without perforation or abscess without bleeding (principal); D72.819 Decreased white blood cell count, unspecified; T45.1X5A Adverse effect of antineoplastic and immunosuppressive drugs, initial encounter; D69.6 Thrombocytopenia, unspecified; I10 Essential (primary) hypertension; E78.00 Pure hypercholesterolemia, unspecified; J44.9 Chronic obstructive pulmonary disease, unspecified; E03.9 Hypothyroidism, unspecified; E66.9 Obesity, unspecified; Z79.899 Other long term (current) drug therapy; Z88.8 Allergy status to other drugs, medicaments and biological substances; Z68.33 Body mass index [BMI] 33.0-33.9, adult
CPT/HCPCS: 36415; 74176; 80053; 81003; 83605; 83735; 83880; 85025; 85610; 87040; 87428; 93005; 96374; 99285; J0692; 93010; 99284

== ENCOUNTER 2024-05-25 06:19 | Emergency (ER) | payer MEDICARE, OTHER ==
[2024-05-25 06:36] VITALS: BP 121/66; PULSE 74
[2024-05-25] MEDS: Take Home: Cephalexin 500 MG Cap, 6 Cap Pack PO ONE (07:44)
== END 2024-05-25 07:49 | disposition home or self-care (01) ==
LOC: LL.ED 06:19
DX: M79.632 Pain in left forearm (principal); M79.89 Other specified soft tissue disorders; I11.0 Hypertensive heart disease with heart failure; I50.30 Unspecified diastolic (congestive) heart failure; J44.9 Chronic obstructive pulmonary disease, unspecified; E03.9 Hypothyroidism, unspecified; E66.9 Obesity, unspecified; Z88.8 Allergy status to other drugs, medicaments and biological substances; Z91.048 Other nonmedicinal substance allergy status; Z79.890 Hormone replacement therapy; Z79.899 Other long term (current) drug therapy
CPT/HCPCS: 99283; A9270